=== PATIENT | female | born 2000 | race African-American/Black ===

== ENCOUNTER 2019-10-18 20:46 | Emergency (ER) | payer SELFPAY ==
[~2019-10-18] VITALS: Ht 121.9 cm; Wt 27.3 kg
[2019-10-18] MEDS ORDERED: ONDANSETRON PF 4 MG/2 ML VIAL. IVP ONE (21:15)
[2019-10-18] MEDS ORDERED: fentaNYL PF VIAL 100 MCG/2 ML VIAL IV PRN (21:15)
[2019-10-18] MEDS ORDERED: IV RINGERS,LACTATED 500ML 500 ML IV ONE (21:15)
[2019-10-18 21:54] LABS: BASO # 0.1 x10^3/uL (0.0-0.2); BASO % 1 % (0-3); EOS # 0.2 x10^3/uL (0.0-0.7); EOS % 2 % (0-3); HEMOGLOBIN 14.3 g/dL (12.0-15.5); LYMPH # 2.7 x10^3/uL (1.0-4.8); LYMPH % 29 % (24-48); MEAN CORPUSCULAR HEMOGLOBIN 29 pg (25-35); MEAN CORPUSCULAR HGB CONC 34 g/dL (31-37); MEAN CORPUSCULAR VOLUME 87 fL (79-100); MONO # 0.5 x10^3/uL (0.0-1.1); MONO % 5 % (0-9); NEUT % 64 % (31-73); PLATELET COUNT 247 x10^3/uL (140-400); RED BLOOD COUNT 4.86 x10^6/uL (3.50-5.40); RED CELL DISTRIBUTION WIDTH 12.9 % (11.5-14.5); WHITE BLOOD COUNT 9.4 x10^3/uL (4.0-11.0)
[2019-10-18 22:01] LABS: CALCIUM 9.3 mg/dL (8.5-10.1); CREATININE 0.8 mg/dL (0.6-1.0); GFR 110.7; POTASSIUM 3.5 mmol/L (3.5-5.1)
[2019-10-18 22:07] LABS: BILIRUBIN,URINE NEGATIVE (NEG); CLARITY,URINE CLEAR; COLOR,URINE YELLOW; NITRITE,URINE NEGATIVE (NEG); PROTEIN,URINE NEGATIVE (NEG-TRACE)
[2019-10-18 22:07] LABS: ALBUMIN 4.2 g/dL (3.4-5.0); ALBUMIN/GLOBULIN RATIO 1.2 (1.0-1.7); TOTAL BILIRUBIN 0.4 mg/dL (0.2-1.0); TOTAL PROTEIN 7.6 g/dL (6.4-8.2)
[2019-10-18 22:12] LABS: BACTERIA,URINE 0 /HPF (0-FEW); RBC,URINE 0 /HPF (0-2); WBC,URINE OCC /HPF (0-4)
[2019-10-18 22:13] LABS: SQUAMOUS EPITHELIAL CELL,UR MOD /LPF
--- NOTE | 2019-10-18 22:58 | RAD ---
KUB, PORTABLE CHEST 1V Clinical History: Reason: abd pain / Spl. Instructions: / History: One view chest: Technique: AP view of the chest was obtained at 10/18/2019 8:57 PM. Comparison: None. Findings: The cardiomediastinal silhouette is normal. The pulmonary vasculature is normal. The lungs and pleural margins are clear. Impression: No evidence of an acute cardiopulmonary process. End impression One view abdomen pelvis Supine AP view abdomen pelvis There is air scattered throughout large and small bowel. There is no free air. IMPRESSION: Abnormal bowel gas pattern suggesting a mild ileus. Electronically signed by: Juventino Olivia III, MD (10/18/2019 10:54 PM) [id number]
--- NOTE | 2019-10-18 23:02 | PHYS DOC ---
General Adult EDM: Chief Complaint: DYSPNEA/RESPIRATOY DISTRESS HPI: HPI: Patient is a 19 year old female who arrives with complaint of shortness of breath and also states that she has been having abdominal pain in her left, mid abdomen. Patient states that she used to have a feeding tube and states that now she has pain that is fairly severe. She denies any chest pain. She states that she started having the abdominal pain as well as shortness of breath while she was at work earlier this evening. Patient is not able to assign a number to level of pain. [] Review of Systems: Review of Systems: Constitutional: Denies fever or chills. [] Respiratory: Complains of shortness of breath. [] Cardiovascular: Denies chest pain or edema. [] GI: Complains of abdominal pain without vomiting or diarrhea. [] Integument: Denies rash. [] Neurologic: Denies headache, focal weakness or sensory changes. [] A full 10 point review of systems has been reviewed and is otherwise negative. Heart Score: Risk Factors: Risk Factors: DM, Current or recent (<one month) smoker, HTN, HLP, family history of CAD, obesity. Risk Scores: Score 0 - 3: 2.5% MACE over next 6 weeks - Discharge Home Score 4 - 6: 20.3% MACE over next 6 weeks - Admit for Clinical Observation Score 7 - 10: 72.7% MACE over next 6 weeks - Early Invasive Strategies Current Medications: Current Medications Medications (Trade) Dose Ordered Sig/Corazon Start Time Stop Time Status Last Admin Dose Admin Fentanyl Citrate (Fentanyl 2ml Vial) 25 mcg PRN Q15MIN PRN 10/18/19 21:15 10/19/19 21:14 Ondansetron HCl (Zofran) 4 mg 1X ONCE 10/18/19 21:15 10/18/19 21:16 DC 10/18/19 21:39 4 MG Ringer's Solution 500 ml @ 500 mls/hr 1X ONCE 10/18/19 21:15 10/18/19 22:14 DC 10/18/19 21:37 500 MLS/HR Allergies: Allergies: Allergies Coded Allergies Type Severity Reaction Last Updated Verified No Known Drug Allergies 10/18/19 No Physical Exam: PE: Constitutional: Well developed, well nourished, no acute distress, non-toxic appearance. [] HENT: Normocephalic, atraumatic, bilateral external ears normal, oropharynx moist, no oral exudates, nose normal. [] Eyes: PERRLA, EOMI, conjunctiva normal, no discharge. [] Neck: Normal range of motion, no tenderness, supple, no stridor. [] Cardiovascular: Regular rate and rhythm [] Lungs & Thorax: Bilateral breath sounds clear to auscultation. Patient tachypneic on exam. [] Abdomen: Bowel sounds normal, soft, no tenderness, no masses, no pulsatile masses. [] Skin: Warm, dry, no erythema, no rash. [] Extremities: No tenderness, no cyanosis, no clubbing, ROM intact, no edema. [] Neurologic: Alert and oriented X 3, no focal deficits noted. [] Current Patient Data: Labs: Laboratory Tests Test 10/18/19 21:40 10/18/19 21:57 10/18/19 22:01 White Blood Count 9.4 x10^3/uL (4.0-11.0) Red Blood Count 4.86 x10^6/uL (3.50-5.40) Hemoglobin 14.3 g/dL (12.0-15.5) Hematocrit 42.0 % (36.0-47.0) Mean Corpuscular Volume 87 fL (79-100) Mean Corpuscular Hemoglobin 29 pg (25-35) Mean Corpuscular Hemoglobin Concent 34 g/dL (31-37) Red Cell Distribution Width 12.9 % (11.5-14.5) Platelet Count 247 x10^3/uL (140-400) Neutrophils (%) (Auto) 64 % (31-73) Lymphocytes (%) (Auto) 29 % (24-48) Monocytes (%) (Auto) 5 % (0-9) Eosinophils (%) (Auto) 2 % (0-3) Basophils (%) (Auto) 1 % (0-3) Neutrophils # (Auto) 6.0 x10^3/uL (1.8-7.7) Lymphocytes # (Auto) 2.7 x10^3/uL (1.0-4.8) Monocytes # (Auto) 0.5 x10^3/uL (0.0-1.1) Eosinophils # (Auto) 0.2 x10^3/uL (0.0-0.7) Basophils # (Auto) 0.1 x10^3/uL (0.0-0.2) Sodium Level 142 mmol/L (136-145) Potassium Level 3.5 mmol/L (3.5-5.1) Chloride Level 104 mmol/L (98-107) Carbon Dioxide Level 25 mmol/L (21-32) Anion Gap 13 (6-14) Blood Urea Nitrogen 15 mg/dL (7-20) Creatinine 0.8 mg/dL (0.6-1.0) Estimated GFR (Cockcroft-Gault) 110.7 BUN/Creatinine Ratio 19 (6-20) Glucose Level 88 mg/dL (70-99) Calcium Level 9.3 mg/dL (8.5-10.1) Total Bilirubin 0.4 mg/dL (0.2-1.0) Aspartate Amino Transferase (AST) 25 U/L (15-37) Alanine Aminotransferase (ALT) 24 U/L (14-59) Alkaline Phosphatase 75 U/L (46-116) Total Protein 7.6 g/dL (6.4-8.2) Albumin 4.2 g/dL (3.4-5.0) Albumin/Globulin Ratio 1.2 (1.0-1.7) Lipase 64 U/L (73-393) L Urine Collection Type Unknown Urine Color Yellow Urine Clarity Clear Urine pH 6.0 (<5.0-8.0) Urine Specific [place] 1.020 (1.000-1.030) Urine Protein Negative mg/dL (NEG-TRACE) Urine Glucose (UA) Negative mg/dL (NEG) Urine Ketones (Stick) Trace mg/dL (NEG) Urine Blood Negative (NEG) Urine Nitrite Negative (NEG) Urine Bilirubin Negative (NEG) Urine Urobilinogen Dipstick 1.0 mg/dL (0.2 mg/dL) Urine Leukocyte Esterase Negative (NEG) Urine RBC 0 /HPF (0-2) Urine WBC Occ /HPF (0-4) Urine Squamous Epithelial Cells Mod /LPF Urine Bacteria 0 /HPF (0-FEW) Urine Mucus Marked /LPF POC Urine HCG, Qualitative Hcg negative (Negative) Laboratory Tests 10/18/19 21:40 Laboratory Tests 10/18/19 21:40 EKG: EKG: [] Radiology/Procedures: Radiology/Procedures: [] Impression: PROCEDURE: PORTABLE CHEST 1V KUB, PORTABLE CHEST 1V Clinical History: Reason: abd pain / Spl. Instructions: / History: One view chest: Technique: AP view of the chest was obtained at 10/18/2019 8:57 PM. Comparison: None. Findings: The cardiomediastinal silhouette is normal. The pulmonary vasculature is normal. The lungs and pleural margins are clear. Impression: No evidence of an acute cardiopulmonary process. End impression One view abdomen pelvis Supine AP view abdomen pelvis There is air scattered throughout large and small bowel. There is no free air. IMPRESSION: Abnormal bowel gas pattern suggesting a mild ileus. Electronically signed by: Juventino Olivia III, MD (10/18/2019 10:54 PM) [id number] PROCEDURE: CT ABD PELV W/ORAL&IV CONTRAST EXAM: CT Abdomen and Pelvis with IV contrast CLINICAL HISTORY: Abdominal pain. COMPARISON: none TECHNIQUE: Helical CT of the abdomen and pelvis was performed following the administration of IV contrast. Axial, coronal and sagittal reformatted images were generated. ---PQRS compliance statement - One or more of the following individualized dose reduction techniques were utilized for this study: 1. Automated exposure control 2. Adjustment of the mA and/or kV according to patient size 3. Use of iterative reconstruction technique--- FINDINGS: Exam is significantly limited given streak artifact from the dense oral contrast material and motion artifact. Lower chest: Lung bases are clear. Abdomen and pelvis: Liver and biliary system: No focal liver lesion. Gallbladder is normal. No biliary ductal dilatation. Spleen: Unremarkable Pancreas: Unremarkable Adrenal glands: Unremarkable Kidneys: Symmetric nephrograms. Right kidney is atrophic. No focal renal lesion. Lymph nodes/retroperitoneum: Prominent retroperitoneal and mesenteric lymph nodes are seen, not enlarged by size criteria. No abdominal or pelvic lymphadenopathy. Vessels: Aorta is normal in caliber. Bowel/Peritoneal cavity: Appendix is not convincingly seen. Moderate colonic stool content is seen. No bowel obstruction. Right adnexal cystic structure/follicle versus bowel loop is seen. No abdominal pelvic ascites. Abdominal wall: Unremarkable Bladder: Unremarkable Bones: No aggressive osseous lesion is seen. IMPRESSION: Exam is limited given streak artifact and motion artifact. Within these constraints, no definite bowel obstruction. Appendix is not seen. Electronically signed by: Mode Cameron MD (10/19/2019 1:08 AM) [id number] DICTATED and SIGNED BY: MODE CAMERON MD DATE: 10/19/19 0108 Course & Med Decision Making: Course & Med Decision Making Pertinent Labs and Imaging studies reviewed. (See chart for details) [] Dragon Disclaimer: Dragon Disclaimer: This electronic medical record was generated, in whole or in part, using a voice recognition dictation system. Departure Departure Impression: Primary Impression: Abdominal pain Qualified Codes: R10.84 - Generalized abdominal pain Additional Impression: Dyspnea Qualified Codes: R06.00 - Dyspnea, unspecified Disposition: HOME, SELF-CARE Condition: STABLE Referrals: NO PCP (PCP) Patient Instructions: Abdominal Pain, Form - Excuse from Work, School, or Physical Activity FAUSTINA CORREA Jr. DO Oct 18, 2019 23:02
[2019-10-18] MEDS ORDERED: CONTRAST GIVEN. MC PRN (23:45)
[2019-10-18] MEDS ORDERED: IOHEXOL 300 MG/ML 100ML VIAL. IV ONE (23:45)
[2019-10-18] MEDS ORDERED: IOHEXOL 240 MG/ML 50ML VIAL. PO ONE (23:45)
--- NOTE | 2019-10-19 01:11 | RAD ---
EXAM: CT Abdomen and Pelvis with IV contrast CLINICAL HISTORY: Abdominal pain. COMPARISON: none TECHNIQUE: Helical CT of the abdomen and pelvis was performed following the administration of IV contrast. Axial, coronal and sagittal reformatted images were generated. ---PQRS compliance statement - One or more of the following individualized dose reduction techniques were utilized for this study: 1. Automated exposure control 2. Adjustment of the mA and/or kV according to patient size 3. Use of iterative reconstruction technique--- FINDINGS: Exam is significantly limited given streak artifact from the dense oral contrast material and motion artifact. Lower chest: Lung bases are clear. Abdomen and pelvis: Liver and biliary system: No focal liver lesion. Gallbladder is normal. No biliary ductal dilatation. Spleen: Unremarkable Pancreas: Unremarkable Adrenal glands: Unremarkable Kidneys: Symmetric nephrograms. Right kidney is atrophic. No focal renal lesion. Lymph nodes/retroperitoneum: Prominent retroperitoneal and mesenteric lymph nodes are seen, not enlarged by size criteria. No abdominal or pelvic lymphadenopathy. Vessels: Aorta is normal in caliber. Bowel/Peritoneal cavity: Appendix is not convincingly seen. Moderate colonic stool content is seen. No bowel obstruction. Right adnexal cystic structure/follicle versus bowel loop is seen. No abdominal pelvic ascites. Abdominal wall: Unremarkable Bladder: Unremarkable Bones: No aggressive osseous lesion is seen. IMPRESSION: Exam is limited given streak artifact and motion artifact. Within these constraints, no definite bowel obstruction. Appendix is not seen. Electronically signed by: Mode Cameron MD (10/19/2019 1:08 AM) [id number]
[2019-10-19 01:21] VITALS: BP 109/68
--- NOTE | 2019-10-19 07:23 | EKG ---
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
== END 2019-10-19 01:21 | disposition home or self-care (01) ==
LOC: ER 20:46
DX: R10.84 Generalized abdominal pain (principal); R06.02 Shortness of breath; R06.00 Dyspnea, unspecified
CPT/HCPCS: 36415; 71045; 74018; 74177; 80053; 81001; 81025; 83690; 85025; 93005; 96374; 99285; J2405; J7120; Q9966; Q9967

== ENCOUNTER 2019-10-22 10:51 | Emergency (ER) | payer BC, MEDICAID ==
[~2019-10-22] VITALS: Ht 142.2 cm; Wt 32.0 kg
--- NOTE | 2019-10-22 12:08 | RAD ---
Single AP view of the chest. Comparison: 10/18/2019. Indication: Cough and congestion Findings: The heart is not enlarged. There is no pneumothorax or effusion. No air space or interstitial disease. Impression: 1. No acute cardiopulmonary process. Electronically signed by: Christophe Nieves MD (10/22/2019 12:05 PM) [id number]
[2019-10-22 12:11] VITALS: BP 114/73
[2019-10-22] MEDS ORDERED: CETI10TA24 PO (12:23)
[2019-10-22] MEDS ORDERED: ALBU2.5V8 INH (12:23)
[2019-10-22] MEDS ORDERED: BENZ100C PO (12:23)
[2019-10-22] MEDS ORDERED: FLUT9.9S NS (12:23)
--- NOTE | 2019-10-22 12:24 | PHYS DOC ---
Past Medical History Past Medical History: Asthma, Seizure, Unknown, Other Additional Past Medical Histor: Pt. poor historian Past Surgical History: Other Additional Past Surgical Histo: pt reports previous g-tube placement Smoking Status: Never Smoker Alcohol Use: None General Adult EDM: Chief Complaint: Congestion HPI: HPI: Patient is a 19 year old female who presents to the ED today complaining of cough and nasal congestion that began on Friday. Patient denies any fever. She reports working at [employer] and states they check them for COVID19 and she has been negative. Denies any's history of smoking. She states she has history of asthma and is using her inhaler with no relief. She was seen in the emergency room 4 days ago for similar complaints. Review of Systems: Review of Systems: Constitutional: Denies fever or chills. [] Eyes: Denies change in visual acuity. [] HENT: Reports nasal congestion, denies sore throat. [] Respiratory: Reports cough, denies shortness of breath. [] Cardiovascular: Denies chest pain or edema. [] GI: Denies abdominal pain, nausea, vomiting, bloody stools or diarrhea. [] : Denies dysuria. [] Musculoskeletal: Denies back pain or joint pain. [] Integument: Denies rash. [] Neurologic: Denies headache, focal weakness or sensory changes. [] Psychiatric: Denies depression or anxiety. [] Heart Score: Risk Factors: Risk Factors: DM, Current or recent (<one month) smoker, HTN, HLP, family history of CAD, obesity. Risk Scores: Score 0 - 3: 2.5% MACE over next 6 weeks - Discharge Home Score 4 - 6: 20.3% MACE over next 6 weeks - Admit for Clinical Observation Score 7 - 10: 72.7% MACE over next 6 weeks - Early Invasive Strategies Allergies: Allergies: Allergies Coded Allergies Type Severity Reaction Last Updated Verified No Known Drug Allergies 10/18/19 No Physical Exam: PE: Constitutional: Smaller than normal for age- due to premature , no acute distress, non-toxic appearance. [] HENT: Normocephalic, atraumatic, bilateral external ears normal, oropharynx moist, no oral exudates, nose normal. [] Eyes: PERRLA, EOMI, conjunctiva normal, no discharge. [] Neck: Normal range of motion, no tenderness, supple, no stridor. [] Cardiovascular:Heart rate regular rhythm, no murmur [] Lungs & Thorax: Patient sounds congested nasally. Bilateral breath sounds clear to auscultation [] Abdomen: Bowel sounds normal, soft, no tenderness, no masses, no pulsatile masses. [] Skin: Warm, dry, no erythema, no rash. [] Back: No tenderness, no CVA tenderness. [] Extremities: No tenderness, no cyanosis, no clubbing, ROM intact, no edema. [] Neurologic: Alert and oriented X 3, normal motor function, normal sensory function, no focal deficits noted. [] Psychologic: Affect normal, judgement normal, mood normal. [] Current Patient Data: Vital Signs: Vital Signs Date Time Temp Pulse Resp B/P (MAP) Pulse Ox O2 Delivery O2 Flow Rate FiO2 10/22/19 11:41 82 108/58 (75) 100 Room Air 10/22/19 11:06 98.3 27 98.3 EKG: EKG: [] Radiology/Procedures: Radiology/Procedures: []PROCEDURE: CHEST AP ONLY Single AP view of the chest. Comparison: 10/18/2019. Indication: Cough and congestion Findings: The heart is not enlarged. There is no pneumothorax or effusion. No air space or interstitial disease. Impression: 1. No acute cardiopulmonary process. Electronically signed by: Noel Angel MD (10/22/2019 12:05 PM) [id number] DICTATED and SIGNED BY: NOEL ANGEL MD DATE: 10/22/19 1205 Course & Med Decision Making: Course & Med Decision Making Pertinent Labs and Imaging studies reviewed. (See chart for details) This is a 19-year-old female patient presenting to the ED today complaining of cough and congestion that began on Friday. Patient sounds congested nasally. Chest x-ray interpreted by radiologist as negative for any acute findings. Prescription for Flonase and Zyrtec sent to her pharmacy. Instructed to follow- up with her own primary care doctor in 1 to 2 weeks. Dragon Disclaimer: Dragon Disclaimer: This electronic medical record was generated, in whole or in part, using a voice recognition dictation system. Departure Departure Impression: Primary Impression: Cough Additional Impression: URI (upper respiratory infection) Qualified Codes: J06.9 - Acute upper respiratory infection, unspecified Disposition: HOME, SELF-CARE Condition: STABLE Referrals: NO PCP (PCP) Please follow up with your doctor in 1-2 weeks Patient Instructions: Cough, Adult, [id number], Upper Respiratory Infection, Adult, [id number] Additional Instructions: Your chest x-ray was negative for pneumonia or any acute findings. We will sent your medications to your pharmacy, ensure you use them as prescribed. Follow- up with your primary care doctor in 1 to 2 weeks Scripts Benzonatate (TESSALON PERLE) 100 Mg Capsule 1 CAP PO TID, #21 CAP Prov: BEAU WINTERS APRN 6//20 Albuterol Sulfate (Proair Hfa) 8.5 Gm Hfa.aer.ad 1 PUFF INH PRN Q6HRS PRN for SHORTNESS OF BREATH, #1 INHALER Prov: BEAU WINTERS APRN 6/5/20 Fluticasone Propionate (Flonase Allergy Relief) 9.9 Ml [place].susp 2 SPRAYS NS DAILY, #1 BOTTLE Prov: BEAU WINTERS APRN //20 Cetirizine Hcl (ZYRTEC) 10 Mg Tablet 1 TAB PO DAILY, #30 TAB 2 Refills Prov: BEAU WINTERS APRN 6/5/20 Justicifation of Admission Dx: Justifications for Admission: Justification of Admission Dx: N/A BEAU WINTERS APRN Oct 22, 2019 12:24
--- NOTE | 2019-10-22 12:47 | EKG ---
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
== END 2019-10-22 12:40 | disposition home or self-care (01) ==
LOC: ER 10:51
DX: J06.9 Acute upper respiratory infection, unspecified (principal); R05 Cough; R09.81 Nasal congestion; J45.909 Unspecified asthma, uncomplicated; Z98.890 Other specified postprocedural states
CPT/HCPCS: 71045; 93005; 99283

== ENCOUNTER 2019-12-08 23:37 | Emergency (ER) | payer SELFPAY ==
[~2019-12-08] VITALS: Ht 142.2 cm; Wt 31.8 kg
[~2019-12-08 23:37] MED LIST: ALBU2.5V8 INH; BENZ100C PO; CETI10TA24 PO; FLUT9.9S NS
[2019-12-08 23:50] VITALS: BP 122/74
--- NOTE | 2019-12-08 23:58 | PHYS DOC ---
Past Medical History Past Medical History: Asthma, Seizure, Unknown, Other Additional Past Medical Histor: Pt. poor historian, seasonal allergies Past Surgical History: Other Additional Past Surgical Histo: pt reports previous g-tube placement Smoking Status: Never Smoker Alcohol Use: None Drug Use: None General Adult EDM: Chief Complaint: ALLERGIES HPI: HPI: Patient is a 19 year old female presents with report of sneezing x3 days. Patient reports concern for possible exacerbation of seasonal allergies. Reports does not have any medication at home to take for this. Reports she did take some Tylenol yesterday. Patient also reports concern she is "losing her voice ". Patient does report history of asthma. Denies wheezing. Denies known sick contacts. Denies fever or chills. Review of Systems: Review of Systems: Constitutional: Denies fever or chills Eyes: Denies redness or eye pain HENT: Reports sneezing and loss of voice Respiratory: Denies cough or shortness of breath or wheezing Cardiovascular: Denies chest pain or palpitations GI: Denies abdominal pain, nausea, or vomiting : Denies dysuria or hematuria Musculoskeletal: Denies back pain or joint pain Integument: Denies rash or skin lesions Neurologic: Denies headache, focal weakness or sensory changes Complete systems were reviewed and found to be within normal limits, except as documented in this note. Allergies: Allergies: Allergies Coded Allergies Type Severity Reaction Last Updated Verified No Known Drug Allergies 10/18/19 No Physical Exam: PE: Constitutional: Prodromic, small statured, no acute distress, non-toxic appearance HENT: Atraumatic, oropharynx moist, enlarged turbinates bilaterally, no pharyngeal erythema Eyes: Conjunctiva normal, no discharge Neck: Normal range of motion, supple Lungs & Thorax: No respiratory distress, equal chest rise and fall Skin: Warm, dry, no erythema, no rash Extremities: No tenderness, ROM intact, no edema Neurologic: Alert and oriented X 3, no focal deficits noted Psychologic: Affect normal, judgment normal EKG: EKG: [] Radiology/Procedures: Radiology/Procedures: [] Course & Med Decision Making: Course & Med Decision Making Patient presents with HPI and physical exam consistent for exacerbation of seasonal allergies. Symptomatic treatment provided with oral dexamethasone. Benadryl also provided. Patient stable for discharge with outpatient follow-up with PCP. Discussed findings and plan with patient, who acknowledges understanding and agreement. Nidia Disclaimer: Nidia Disclaimer: This electronic medical record was generated, in whole or in part, using a voice recognition dictation system. Departure Departure Impression: Primary Impression: Seasonal allergies Disposition: 01 HOME, SELF-CARE Condition: STABLE Referrals: NO PCP (PCP) Patient Instructions: Allergic Rhinitis Additional Instructions: Take over the counter benadryl as needed for further symptoms. Recommendation to utilize a humidifier, especially at night when sleeping, to decreased allergens in the air. Justicifation of Admission Dx: Justifications for Admission: Justification of Admission Dx: N/A NEEL MONTES DE OCA DO Dec 08, 2019 23:58
[2019-12-09] MEDS ORDERED: diphenhydrAMINE HCL 25 MG CAPSULE PO ONE (00:15)
[2019-12-09] MEDS ORDERED: DEXAMETHASONE 4 MG TABLET PO ONE (00:15)
== END 2019-12-09 00:11 | disposition home or self-care (01) ==
LOC: ER 23:37
DX: J45.909 Unspecified asthma, uncomplicated (principal); R49.1 Aphonia; L53.9 Erythematous condition, unspecified; Z98.890 Other specified postprocedural states
CPT/HCPCS: 99283; Q0163

== ENCOUNTER 2021-10-02 22:48 | Emergency (ER) | payer BC ==
[~2021-10-02] VITALS: Ht 144.8 cm; Wt 29.5 kg
[~2021-10-02 22:48] MED LIST changes: -CETI10TA24 PO; +CETI10TA74 PO
[2021-10-02] MEDS ORDERED: NAPR-695 PO (23:31)
[2021-10-02] MEDS ORDERED: CYCL10TA19 PO (23:31)
--- NOTE | 2021-10-02 23:31 | PHYS DOC ---
Past Medical History Past Medical History: Asthma, Seizure, Unknown, Other Additional Past Medical Histor: Pt. poor historian, seasonal allergies Past Surgical History: Other Additional Past Surgical Histo: pt reports previous g-tube placement Smoking Status: Never Smoker Alcohol Use: None Drug Use: None General Adult EDM: Chief Complaint: HIP PAIN HPI: HPI: Patient is a 21 year old female who presents the ED today to be evaluated for mild left hip/groin pain that began after she stepped wrong at work. Patient denies falling. Patient states the pain is worse on external rotation of the left hip. She states pain is relieved on laying down/immobilization. She states her job sent her to the ED to be evaluated. Review of Systems: Review of Systems: Constitutional: Denies fever or chills. [] Musculoskeletal: Reports left groin/left hip pain Integument: Denies rash. [] Neurologic: Denies headache, focal weakness or sensory changes. [] Psychiatric: Denies depression or anxiety. [] Heart Score: C/O Chest Pain: N/A Risk Factors: Risk Factors: DM, Current or recent (<one month) smoker, HTN, HLP, family history of CAD, obesity. Risk Scores: Score 0 - 3: 2.5% MACE over next 6 weeks - Discharge Home Score 4 - 6: 20.3% MACE over next 6 weeks - Admit for Clinical Observation Score 7 - 10: 72.7% MACE over next 6 weeks - Early Invasive Strategies Allergies: Allergies: Allergies Coded Allergies Type Severity Reaction Last Updated Verified No Known Drug Allergies 10/02/21 No Physical Exam: PE: Constitutional: Appears developmentally smaller than stated age, no acute distre ss, non-toxic appearance. [] Abdomen: Bowel sounds normal, soft, no tenderness, no masses, no pulsatile mas ses. [] Skin: Warm, dry, no erythema, no rash. [] Back: No tenderness, no CVA tenderness. [] Extremities: Left lower extremity with no obvious deformity. Pain elicited on external rotation of the left hip as well as palpation of the left groin. Full range of motion to the left hip. +2 left pedal pulse. Cap refill less than 2 seconds to left lower extremity Neurologic: Alert and oriented X 3, normal motor function, normal sensory function, no focal deficits noted. [] Psychologic: Affect normal, judgement normal, mood normal. [] EKG: EKG: [] Radiology/Procedures: Radiology/Procedures: [] Course & Med Decision Making: Course & Med Decision Making Pertinent Labs and Imaging studies reviewed. (See chart for details) This a 21-year-old female patient presenting to the ED today with left hip/left groin strain after stepping wrong. Discharged home with naproxen and Flexeril. Follow-up with her own doctor in 1 week Nidia Disclaimer: Nidia Disclaimer: This electronic medical record was generated, in whole or in part, using a voice recognition dictation system. Departure Departure Impression: Primary Impression: Strain of left groin Additional Impression: Strain of left hip Qualified Codes: S76.012A - Strain of muscle, fascia and tendon of left hip, initial encounter Disposition: HOME / SELF CARE / HOMELESS Condition: STABLE Referrals: NO PCP (PCP) follow up with your doctor in one week Patient Instructions: Groin Strain Additional Instructions: You were evaluated in the emergency room for left hip/left groin strain. Consider icing and elevating your left lower extremity. Take the pain medicine prescribed as needed for pain. Follow-up with your doctor in 1 week, come back to the ED at any point symptoms worsen Scripts Cyclobenzaprine Hcl (CYCLOBENZAPRINE HCL) 10 Mg Tablet 1 TAB PO TID, #30 TAB Prov: BEAU WINTERS APRN 10/02/21 Naproxen (NAPROXEN) 375 Mg Tablet 1 TAB PO BID for pain, #14 TAB 0 Refills with food Prov: BEAU WINTERS APRN 10/02/21 BEAU WINTERS APRN October 02, 2021 23:31
[2021-10-03 00:17] VITALS: BP 105/51
== END 2021-10-03 00:18 | disposition home or self-care (01) ==
LOC: ER 22:48
DX: S76.012A Strain of muscle, fascia and tendon of left hip, initial encounter (principal); S39.011A Strain of muscle, fascia and tendon of abdomen, initial encounter; J45.909 Unspecified asthma, uncomplicated; X50.9XXA Other and unspecified overexertion or strenuous movements or postures, initial encounter; Y93.89 Activity, other specified; Y92.89 Other specified places as the place of occurrence of the external cause; Y99.8 Other external cause status
CPT/HCPCS: 99283

== ENCOUNTER 2021-10-06 21:52 | Emergency (ER) | payer SELFPAY ==
[~2021-10-06] VITALS: Ht 144.8 cm; Wt 27.8 kg
[~2021-10-06 21:52] MED LIST changes: +CYCL10TA19 PO; +NAPR-695 PO
[2021-10-06 22:30] VITALS: BP 106/68
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
[2021-10-06] MEDS ORDERED: NEOMY/BACITR/POLYMYXIN OINT PACKET. TP ONE (23:00)
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
== END 2021-10-06 23:13 | disposition left against medical advice (07) ==
LOC: ER 21:52
DX: S10.91XA Abrasion of unspecified part of neck, initial encounter (principal); G62.9 Polyneuropathy, unspecified; M54.2 Cervicalgia; J45.909 Unspecified asthma, uncomplicated; V49.49XA Driver injured in collision with other motor vehicles in traffic accident, initial encounter; Y93.89 Activity, other specified; Y92.488 Other paved roadways as the place of occurrence of the external cause; Y99.8 Other external cause status
CPT/HCPCS: 72050; 99283-25

== ENCOUNTER 2021-10-10 15:25 | Emergency (ER) | payer OTHER ==
[~2021-10-10] VITALS: Ht 139.7 cm; Wt 29.5 kg
[2021-10-10 15:35] VITALS: BP 122/70
[2021-10-10] MEDS ORDERED: IBUPROFEN 400 MG TABLET. PO ONE (15:45)
[2021-10-10] MEDS ORDERED: CYCLOBENZAPRINE 10 MG TABLET. PO ONE (15:45)
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
[2021-10-10] MEDS ORDERED: CYCL5TAB PO (17:39)
[2021-10-10] MEDS ORDERED: IBUP-1007 PO (17:39)
== END 2021-10-10 17:54 | disposition home or self-care (01) ==
LOC: ER 15:25
DX: S13.9XXA Sprain of joints and ligaments of unspecified parts of neck, initial encounter (principal); R51.9 Headache, unspecified; M54.50 Low back pain, unspecified; M54.6 Pain in thoracic spine; J45.909 Unspecified asthma, uncomplicated; V49.59XA Passenger injured in collision with other motor vehicles in traffic accident, initial encounter; Y93.89 Activity, other specified; Y92.488 Other paved roadways as the place of occurrence of the external cause; Y99.8 Other external cause status
CPT/HCPCS: 70450; 72072; 72100; 72125; 99284-25